=== PATIENT | male | born 1980 | race Caucasian/White ===

== ENCOUNTER 2017-07-03 19:48 | Emergency (ER) | payer OTHER ==
[~2017-07-03] VITALS: Ht 175.3 cm; Wt 68.2 kg
[~2017-07-03 19:48] MED LIST: ABIL5TAB6 PO; CLON1 PO; FLUO20SO3 PO; SOMA250T PO
[2017-07-03 20:07] VITALS: BP 163/88; PULSE 109; RESP 16; TEMP 98.3; O2SAT 99
--- NOTE | 2017-07-03 20:11 | PD ---
HPI Chief Complaint: Psychiatric Symptoms Time Seen by Provider: 20:00 Travel History International Travel<30 days: No Contact w/Intl Traveler<30days: No Traveled to known affect area: No History of Present Illness HPI 36-year-old male presents emergency Department under Johnson act by PD. The patient allegedly had jumped out of a moving vehicle. He had made suicidal statements. He is brought here for evaluation. Patient has been smoking marijuana and drinking alcohol. The patient appears heavily intoxicated. I meaningful history is unobtainable at this time. PFSH Past Medical History Anxiety: Yes Depression: Yes Cancer: No Cardiovascular Problems: No Diminished Hearing: No Headaches: No Hypertension: Yes Psychiatric: Yes (Long history of anxiety, depression and ADHD) Seizures: No Past Surgical History Oral Surgery: Yes (WISDOM TEETH) Social History Alcohol Use: Yes Tobacco Use: Yes Substance Use: Yes (ALCOHOL, MARIJUANA) Allergies-Medications (Allergen,Severity, Reaction): Coded Allergies: No Known Allergies (Verified Adverse Reaction, Unknown, 07/03/17) Reported Meds & Prescriptions Reported Meds & Active Scripts Active Active Prescriptions or Reported Medications Unobtainable Review of Systems ROS Limitations: Intoxication Physical Exam Narrative GENERAL: Well-nourished, well-developed patient. Smells of EtOH and appears heavily intoxicated. She is somewhat agitated. Very labile personality. SKIN: Warm and dry. HEAD: Normocephalic and atraumatic. EYES: No scleral icterus. No injection or drainage. ENT: No nasal drainage noted. Mucous membranes pink. Airway patent. NECK: Supple, trachea midline. Moves head freely without obvious discomfort. CARDIOVASCULAR: Regular rate and rhythm without murmurs, gallops, or rubs. RESPIRATORY: Breath sounds equal bilaterally. No accessory muscle use. GASTROINTESTINAL: Abdomen soft, non-tender, nondistended. EXTREMITIES: No cyanosis or edema. BACK: Nontender without obvious deformity. No CVA tenderness. NEURO: Patient is alert and oriented. no sensorimotor deficits. Nonfocal. Slurred speech. PSYCH: No delusions. No auditory or visual hallucinations. Data Data Last Documented VS Vital Signs Date Time Temp Pulse Resp B/P (MAP) Pulse Ox O2 Delivery O2 Flow Rate FiO2 07/03/17 23:27 98.0 71 18 108/63 (78) 99 Room Air Orders Orders Complete Blood Count With Diff (07/03/17 20:05) Comprehensive Metabolic Panel (07/03/17 20:05) Thyroid Stimulating Hormone (07/03/17 20:05) Psych Screen (07/03/17 20:05) Drug Screen, Random Urine (07/03/17 20:05) Alcohol (Ethanol) (07/03/17 20:05) Salicylates (Aspirin) (07/03/17 20:05) Tylenol (Acetaminophen) (07/03/17 20:05) Haloperidol Inj (Haldol Inj) (07/03/17 20:45) Lorazepam Inj (Ativan Inj) (07/03/17 20:45) Labs Laboratory Tests Test 07/03/17 20:10 07/03/17 20:50 White Blood Count 8.1 TH/MM3 Red Blood Count 4.94 MIL/MM3 Hemoglobin 17.0 GM/DL Hematocrit 48.5 % Mean Corpuscular Volume 98.2 FL Mean Corpuscular Hemoglobin 34.5 PG Mean Corpuscular Hemoglobin Concent 35.1 % Red Cell Distribution Width 14.1 % Platelet Count 361 TH/MM3 Mean Platelet Volume 7.5 FL Neutrophils (%) (Auto) 74.6 % Lymphocytes (%) (Auto) 19.3 % Monocytes (%) (Auto) 4.6 % Eosinophils (%) (Auto) 0.4 % Basophils (%) (Auto) 1.1 % Neutrophils # (Auto) 6.1 TH/MM3 Lymphocytes # (Auto) 1.6 TH/MM3 Monocytes # (Auto) 0.4 TH/MM3 Eosinophils # (Auto) 0.0 TH/MM3 Basophils # (Auto) 0.1 TH/MM3 CBC Comment DIFF FINAL Differential Comment Total Protein 8.6 GM/DL Alkaline Phosphatase 111 U/L Alanine Aminotransferase (ALT/SGPT) 151 U/L Total Bilirubin 0.3 MG/DL Anion Gap 12 MEQ/L Estimat Glomerular Filtration Rate 82 ML/MIN Thyroid Stimulating Hormone 3rd Gen 0.335 uIU/ML Salicylates Level 3.3 MG/DL Acetaminophen Level LESS THAN 2.0 MCG/ML Ethyl Alcohol Level 363 MG/DL Urine Opiates Screen NEG Urine Barbiturates Screen NEG Urine Amphetamines Screen NEG Urine Benzodiazepines Screen NEG Urine Cocaine Screen NEG Urine Cannabinoids Screen POS MDM Medical Decision Making Medical Screen Exam Complete: Yes Emergency Medical Condition: Yes Medical Record Reviewed: Yes Interpretation(s) Laboratory Tests Test 07/03/17 20:10 07/03/17 20:50 White Blood Count 8.1 TH/MM3 Red Blood Count 4.94 MIL/MM3 Hemoglobin 17.0 GM/DL Hematocrit 48.5 % Mean Corpuscular Volume 98.2 FL Mean Corpuscular Hemoglobin 34.5 PG Mean Corpuscular Hemoglobin Concent 35.1 % Red Cell Distribution Width 14.1 % Platelet Count 361 TH/MM3 Mean Platelet Volume 7.5 FL Neutrophils (%) (Auto) 74.6 % Lymphocytes (%) (Auto) 19.3 % Monocytes (%) (Auto) 4.6 % Eosinophils (%) (Auto) 0.4 % Basophils (%) (Auto) 1.1 % Neutrophils # (Auto) 6.1 TH/MM3 Lymphocytes # (Auto) 1.6 TH/MM3 Monocytes # (Auto) 0.4 TH/MM3 Eosinophils # (Auto) 0.0 TH/MM3 Basophils # (Auto) 0.1 TH/MM3 CBC Comment DIFF FINAL Differential Comment Total Protein 8.6 GM/DL Alkaline Phosphatase 111 U/L Alanine Aminotransferase (ALT/SGPT) 151 U/L Total Bilirubin 0.3 MG/DL Anion Gap 12 MEQ/L Estimat Glomerular Filtration Rate 82 ML/MIN Thyroid Stimulating Hormone 3rd Gen 0.335 uIU/ML Salicylates Level 3.3 MG/DL Acetaminophen Level LESS THAN 2.0 MCG/ML Ethyl Alcohol Level 363 MG/DL Urine Opiates Screen NEG Urine Barbiturates Screen NEG Urine Amphetamines Screen NEG Urine Benzodiazepines Screen NEG Urine Cocaine Screen NEG Urine Cannabinoids Screen POS Differential Diagnosis MDM: High Differential diagnoses: Schizophrenia, schizoaffective disorder, bipolar, anxiety, depression, adjustment reaction, mood disorder NOS, ODD, depressive disorder NOS, dementia, dementia with agitation, psychosis NOS, substance induced mood disorder, DMDD, Asperger syndrome, infection,electrolyte abnormality, malingering. Narrative Course Mental health screening discussed with the patient. Psychiatric screen ordered. The patient is medicated with Haldol 10 mg and Ativan 2 mg IM due to his agitation and potential for risk to the staff. The patient been medically cleared. Diagnosis Primary Impression: Medical clearance for psychiatric admission Additional Impressions: Alcohol intoxication Qualified Codes: F10.920 - Alcohol use, unspecified with intoxication, uncomplicated Substance abuse Scripts Unable to Obtain Active Prescriptions or Reported Meds Condition: Wilfrido Pollock Jul 03, 2017 20:11
[2017-07-03 20:45] LABS: AUTOMATED NEUTROPHIL # 6.1 TH/MM3 (1.8-7.7); BASOPHIL # 0.1 TH/MM3 (0-0.2); BASOPHIL % 1.1 % (0.0-2.0); EOSINOPHIL % 0.4 % (0.0-4.0); HEMATOCRIT 48.5 % (39.0-51.0); LYMPH % 19.3 % (9.0-44.0); LYMPHOCYTE # 1.6 TH/MM3 (1.0-4.8); MEAN CELL VOLUME 98.2 FL (80.0-100.0); MEAN CORPUSCULAR HEMOGLOBIN 34.5 PG (27.0-34.0); MEAN CORPUSCULAR HGB CONC 35.1 % (32.0-36.0); MEAN PLATELET VOLUME 7.5 FL (7.0-11.0); MONO % 4.6 % (0.0-8.0); MONOCYTE # 0.4 TH/MM3 (0-0.9); NEUT % 74.6 % (16.0-70.0); PLATELET COUNT 361 TH/MM3 (150-450); RED BLOOD COUNT 4.94 MIL/MM3 (4.50-5.90); RED CELL DISTRIBUTION WIDTH 14.1 % (11.6-17.2); WHITE BLOOD COUNT 8.1 TH/MM3 (4.0-11.0)
[2017-07-03] MEDS ORDERED: HALOPERIDOL LACTATE 5 MG/ML AMP IM ONE (20:45)
[2017-07-03] MEDS ORDERED: LORazepam 2 MG/ML VIAL IM ONE (20:45)
[2017-07-03 21:01] LABS: ALBUMIN 4.4 GM/DL (3.4-5.0); AST (GOT) 72 U/L (15-37); BLOOD UREA NITROGEN 13 MG/DL (7-18); CALCIUM 9.1 MG/DL (8.5-10.1); CHLORIDE 108 MEQ/L (98-107); CREATININE 1.02 MG/DL (0.60-1.30); GLOMERULAR FILTRATION RATE 82 ML/MIN (>89); GLUCOSE,RANDOM 84 MG/DL (74-106); SODIUM (NA) 142 MEQ/L (136-145)
[2017-07-03 21:11] LABS: ALKALINE PHOSPHATASE 111 U/L (45-117); ALT (GPT) 151 U/L (12-78); TOTAL BILIRUBIN ADULT 0.3 MG/DL (0.2-1.0); TOTAL PROTEIN 8.6 GM/DL (6.4-8.2)
[2017-07-03 21:12] LABS: ACETAMINOPHEN LESS THAN 2.0 MCG/ML (10.0-30.0)
[2017-07-03 23:27] VITALS: BP 108/63; PULSE 71; RESP 18; TEMP 98; O2SAT 99
[2017-07-04 06:17] VITALS: BP 119/65; PULSE 111; RESP 18; TEMP 98.2; O2SAT 99
--- NOTE | 2017-07-04 15:20 | PD.PSY.CON ---
Provisional Diagnosis Admission Date [place] I. Alcohol induced mood disorder, alcohol and cocaine use disorder, history of depression and generalized anxiety disorder [place] II. Unspecified personality disorder, cluster B traits [place]way III. No significant medical history significant medical history History of Present Illness Service Psychiatry Consult Requested By ER Reason for Consult Elizabeth act Primary Care Physician No Primary Care Physician HPI The patient is a 36-year-old [place] man, domiciled in [place] his , unemployed, with psychiatric history of depression, generalized anxiety disorder , previous psychotic hospitalizations, one of the hospitalization was here in [place] in 2014, the documentation reviewed, previous suicidal attempts, history of self cutting behavior, establish outpatient psychiatric care with Dr. Jarquin, is in Remeron 30 mg, clonazepam 1 mg 3 times a day, no significant medical history, who presents emergency Department under Elizabeth alves by PD. The patient allegedly had jumped out of a moving vehicle. He had made suicidal statements. He is brought here for evaluation. Patient has been smoking marijuana and drinking alcohol. The patient appears heavily intoxicated. I meaningful history is unobtainable at this time. On initial presentation his BAL was 363. On psychiatric evaluation today, the patient is clinically sober, calm, cooperative, logical, coherent and relevant. The patient does not remember the circumstances that brought him to the hospital. He drunk yesterday. The patient denies trying to commit suicide, towards good mood, denies depressive symptoms, he denies anxiety, he denies suicidal and homicidal ideation, he denies visual and auditory hallucinations. She reports drinking alcohol about 3 times per week, he denies withdrawal symptoms, reports daily use of marijuana. Review of Systems Constitutional: DENIES: Diaphoretic episodes, Fatigue, Fever, Weight gain, Weight loss, Chills, Dizziness, Change in appetite, Night Sweats Endocrine: DENIES: Heat/cold intolerance, Polydipsia, Polyuria, Polyphagia Eyes: DENIES: Blurred vision, Diplopia, Eye inflammation, Eye pain, Vision loss , Photosensitivity, Double Vision Ears, nose, mouth, throat: DENIES: Tinnitus, Hearing loss, Vertigo, Nasal discharge, Oral lesions, Throat pain, Hoarseness, Ear Pain, Running Nose, Epistaxis, Sinus Pain, Toothache, Odynophagia Respiratory: DENIES: Apneas, Cough, Snoring, Wheezing, Hemoptysis, Sputum production, Shortness of breath Cardiovascular: DENIES: Chest pain, Palpitations, Syncope, Dyspnea on Exertion , PND, Lower Extremity Edema, Orthopnea, Claudication Gastrointestinal: DENIES: Abdominal pain, Black stools, Bloody stools, Constipation, Diarrhea, Nausea, Vomiting, Difficulty Swallowing, Anorexia Genitourinary: DENIES: Sexual dysfunction, Urinary frequency, Urinary incontinence, Urgency, Hematuria, Dysuria, Nocturia, Penile Discharge, Testicular Pain, Testicular Swelling Musculoskeletal: DENIES: Joint pain, Muscle aches, Stiffness, Joint Swelling, Back pain, Neck pain Integumentary: DENIES: Abnormal pigmentation, Nail changes, Pruritus, Rash Hematologic/lymphatic: DENIES: Bruising, Lymphadenopathy Immunologic/allergic: DENIES: Eczema, Urticaria Neurologic: DENIES: Abnormal gait, Headache, Localized weakness, Paresthesias, Seizures, Speech Problems, Tremor, Poor Balance Psychiatric: DENIES: Anxiety, Confusion, Mood changes, Depression, Hallucinations, Agitation, Suicidal Ideation, Homicidal Ideation, Delusions Past Family Social History Coded Allergies: No Known Allergies (Verified Adverse Reaction, Unknown, 07/03/17) Discontinued Reported Medications Carisoprodol (Soma) 250 Mg Tab, 250 MG PO BID, TAB 11/25/14 Clonazepam (Klonopin) 1 Mg Tab, 1 MG PO TID, #90 TAB 11/25/14 Fluoxetine Hcl (Prozac) 20 Mg/5 Ml Liqd, 40 MG PO DAILY, ML 11/25/14 Discontinued Scripts Aripiprazole (Abilify 5 mg) 5 Mg Tab, 5 MG PO HS for mental health, #14 TAB 0 Refills Prov:Jose Berry MD 12/29/14 Family Psych History She has a cousin with schizophrenia Social History Patient was born and raised in [place], he lives in [place] his , unemployed, his highest level of education is high school Patient's Strengths (min. 2) outpatient psychiatric care Physical Exam Vital Signs Vital Signs Date Time Temp Pulse Resp B/P (MAP) Pulse Ox O2 Delivery O2 Flow Rate FiO2 07/04/17 06:17 98.2 111 18 119/65 (83) 99 Room Air Lab Results Test 07/03/17 20:10 07/03/17 20:50 White Blood Count 8.1 TH/MM3 Red Blood Count 4.94 MIL/MM3 Hemoglobin 17.0 GM/DL Hematocrit 48.5 % Mean Corpuscular Volume 98.2 FL Mean Corpuscular Hemoglobin 34.5 PG Mean Corpuscular Hemoglobin Concent 35.1 % Red Cell Distribution Width 14.1 % Platelet Count 361 TH/MM3 Mean Platelet Volume 7.5 FL Neutrophils (%) (Auto) 74.6 % Lymphocytes (%) (Auto) 19.3 % Monocytes (%) (Auto) 4.6 % Eosinophils (%) (Auto) 0.4 % Basophils (%) (Auto) 1.1 % Neutrophils # (Auto) 6.1 TH/MM3 Lymphocytes # (Auto) 1.6 TH/MM3 Monocytes # (Auto) 0.4 TH/MM3 Eosinophils # (Auto) 0.0 TH/MM3 Basophils # (Auto) 0.1 TH/MM3 CBC Comment DIFF FINAL Differential Comment Total Protein 8.6 GM/DL Alkaline Phosphatase 111 U/L Alanine Aminotransferase (ALT/SGPT) 151 U/L Total Bilirubin 0.3 MG/DL Anion Gap 12 MEQ/L Estimat Glomerular Filtration Rate 82 ML/MIN Thyroid Stimulating Hormone 3rd Gen 0.335 uIU/ML Salicylates Level 3.3 MG/DL Acetaminophen Level LESS THAN 2.0 MCG/ML Ethyl Alcohol Level 363 MG/DL Urine Opiates Screen NEG Urine Barbiturates Screen NEG Urine Amphetamines Screen NEG Urine Benzodiazepines Screen NEG Urine Cocaine Screen NEG Urine Cannabinoids Screen POS Mental Status Examination Appearance: Appropriate Consciousness: Alert Orientation: x4 Motor Activity: Normal gait Speech: Unremarkable Language: Adequate Fund of Knowledge: Adequate Attention and Concentration: Adequate Memory: Unremarkable Mood: Appropriate Affect: Appropriate Thought Process & Associations: Intact Thought Content: Appropriate Hallucination Type: None Delusion Type: None Suicidal Ideation: No Suicidal Plan: No Suicidal Intention: No Homicidal Ideation: No Homicidal Plan: No Homicidal Intention: No Insight: Adequate Judgment: Adequate Assessment & Plan Problem List: (1) Alcohol intoxication ICD Codes: F10.929 - Alcohol use, unspecified with intoxication, unspecified Status: Acute Assessment & Plan: Recent suicidal gesture of jumping off his car seems to be the result of acute alcohol intoxication. At this moment the patient denies depression, denies anxiety, denies chaparrita and psychosis. He denies suicidal and homicidal ideation, he denies visual and auditory hallucinations. The patient is connected with outpatient psychiatric care, he is in Remeron 30 mg, clonazepam 1 mg 3 times a day. He does not meet criteria for involuntary psychiatric admission at this moment. Support, motivation and psychoeducation provided. Patient can continue his psychiatric care as an outpatient. His mother was contacted for collateral information, she confirms that the patient has history of psychiatry, problem with alcohol. Johnson act will be lifted. Assessment & Plan Estimated LOS: days Problem Qualifiers (1) Alcohol intoxication: Qualified Codes: F10.920 - Alcohol use, unspecified with intoxication, uncomplicated Yeison Akers MD Jul 04, 2017 15:20
--- NOTE | 2017-07-04 16:16 | PD ---
Physical Exam Time Seen by Provider: 16:[address] Amador has evaluated the patient, lifted the Johnson act and cleared the patient for discharge. Data Data Last Documented VS Vital Signs Date Time Temp Pulse Resp B/P (MAP) Pulse Ox O2 Delivery O2 Flow Rate FiO2 07/04/17 06:17 98.2 111 18 119/65 (83) 99 Room Air Orders Orders Complete Blood Count With Diff (07/03/17 20:05) Comprehensive Metabolic Panel (07/03/17 20:05) Thyroid Stimulating Hormone (07/03/17 20:05) Psych Screen (07/03/17 20:05) Drug Screen, Random Urine (07/03/17 20:05) Alcohol (Ethanol) (07/03/17 20:05) Salicylates (Aspirin) (07/03/17 20:05) Tylenol (Acetaminophen) (07/03/17 20:05) Haloperidol Inj (Haldol Inj) (07/03/17 20:45) Lorazepam Inj (Ativan Inj) (07/03/17 20:45) Diet Regular Basic (07/04/17 Breakfast) Diet Regular Basic (07/04/17 Lunch) Diet Regular Basic (07/04/17 Dinner) Labs Laboratory Tests Test 07/03/17 20:10 07/03/17 20:50 White Blood Count 8.1 TH/MM3 Red Blood Count 4.94 MIL/MM3 Hemoglobin 17.0 GM/DL Hematocrit 48.5 % Mean Corpuscular Volume 98.2 FL Mean Corpuscular Hemoglobin 34.5 PG Mean Corpuscular Hemoglobin Concent 35.1 % Red Cell Distribution Width 14.1 % Platelet Count 361 TH/MM3 Mean Platelet Volume 7.5 FL Neutrophils (%) (Auto) 74.6 % Lymphocytes (%) (Auto) 19.3 % Monocytes (%) (Auto) 4.6 % Eosinophils (%) (Auto) 0.4 % Basophils (%) (Auto) 1.1 % Neutrophils # (Auto) 6.1 TH/MM3 Lymphocytes # (Auto) 1.6 TH/MM3 Monocytes # (Auto) 0.4 TH/MM3 Eosinophils # (Auto) 0.0 TH/MM3 Basophils # (Auto) 0.1 TH/MM3 CBC Comment DIFF FINAL Differential Comment Total Protein 8.6 GM/DL Alkaline Phosphatase 111 U/L Alanine Aminotransferase (ALT/SGPT) 151 U/L Total Bilirubin 0.3 MG/DL Anion Gap 12 MEQ/L Estimat Glomerular Filtration Rate 82 ML/MIN Thyroid Stimulating Hormone 3rd Gen 0.335 uIU/ML Salicylates Level 3.3 MG/DL Acetaminophen Level LESS THAN 2.0 MCG/ML Ethyl Alcohol Level 363 MG/DL Urine Opiates Screen NEG Urine Barbiturates Screen NEG Urine Amphetamines Screen NEG Urine Benzodiazepines Screen NEG Urine Cocaine Screen NEG Urine Cannabinoids Screen POS MDM Supervised Visit with SHASHI: No Narrative Course Dr. Amador has evaluated the patient, lifted the Johnson act and cleared the patient for discharge. Patient contracts safety. Denies suicidal or homicidal ideations. Patient will be provided community resource packet to [facility] for follow-up. Has friends and family for support. Patient was medically cleared by alternate provider prior to psych screening. Patient has been evaluated by psychiatry and and is now cleared for discharge. 1622: CMP on the MR is pending. I called the lab and was given the results which are unremarkable. Diagnosis Primary Impression: Alcohol intoxication Qualified Codes: F10.920 - Alcohol use, unspecified with intoxication, uncomplicated Additional Impressions: Substance abuse Low TSH level Referrals: [facility] (Out patient) [facility] Primary Care Physician Psychiatrist [facility] Patient Instructions: Abuse of Alcohol (ED), Alcohol Dependence (ED), Alcohol Intoxication (ED), General Instructions, Polysubstance Abuse (ED) Additional Instruction: Contract safety to your self and others Follow-up with psychiatry Follow-up with primary care provider Follow-up with [facility] Follow-up with primary care provider in regards to low TSH level Return to the emergency department immediately with worsening of symptoms Med/Other Pt SpecificInfo: No Change to Meds, No Meds Exist/No RX given Scripts Unable to Obtain Active Prescriptions or Reported Meds Disposition: 01 DISCHARGE HOME Condition: Stable Sarah Ledezma Jul 04, 2017 16:16
[2017-07-04 16:33] VITALS: BP 114/64
== END 2017-07-04 16:42 | disposition home or self-care (01) ==
LOC: NEPD 19:48 → NEPJ 07-04 16:42
DX: F10.129 Alcohol abuse with intoxication, unspecified (principal); F19.10 Other psychoactive substance abuse, uncomplicated; F12.10 Cannabis abuse, uncomplicated; R45.851 Suicidal ideations; I10 Essential (primary) hypertension; F41.9 Anxiety disorder, unspecified; F32.9 Major depressive disorder, single episode, unspecified; F90.9 Attention-deficit hyperactivity disorder, unspecified type; Z72.0 Tobacco use
CPT/HCPCS: 80053; 80307; 84443; 85025; 96372; 99284; J1630; J2060

== ENCOUNTER 2018-05-22 21:10 | Inpatient (IN) ==
[2018-05-22] MEDS ORDERED: Lidocaine 1%/Epinephrine 1:100,000 Inj 50 ML Vial INFILTRATN ONE (21:59)
[2018-05-22] MEDS ORDERED: Lidocaine 1% Inj 50 ML Vial ONE (22:03)
--- NOTE | 2018-05-22 22:21 | ED ---
HPI General Chief Complaint: Psychiatric Symptoms Stated Complaint: Psych Sofia Hernandez Time Seen by Provider: 05/23/18 10:30 Source: patient and EMS Mode of arrival: EMS Limitations: no limitations History of Present Illness HPI Narrative: 37-year-old male was Johnson acted and brought in by EMS for psychiatric evaluation. Patient cut himself on the right wrist with a knife this evening. Patient states that he attempted suicide. Patient has history of suicide attempts in the past. Patient has history of depression, anxiety disorder, previous psychotic hospitalization. Patient denies medical problems. Patient states that he is up-to-date with TD booster. Patient states that he drinks alcohol occasionally. Patient denies recent illicit drug abuse. MD complaint: Reports suicidal ideation Onset (ago): hour(s) Duration: constant History of same: Yes Relieving factors: none Exacerbating factors: none Associated psychiatric symptoms: Reports depression Associated symptoms: Reports denies other symptoms Treatments prior to arrival: Reports none If self harm: admits thoughts of self harm Related Data Home Medications Medication Instructions Recorded Confirmed carisoprodol [Soma] 350 mg PO HS 05/23/18 05/23/18 clonazepam 3 mg PO HS 05/23/18 05/23/18 dextroamphetamine-amphetamine 30 mg PO BID 05/23/18 05/23/18 [Adderall] mirtazapine 45 mg PO HS 05/23/18 05/23/18 Allergies Allergy/AdvReac Type Severity Reaction Status Date / Time No Known Allergies Unknown Uncoded 07/03/17 20:10 Review of Systems ROS: all other systems reviewed are negative PMFSH Medical History Medical History Patient denies medical problems (Acute) Surgical History Surgical History No history of previous surgery (Acute) Social History Social History Substance History: Active Abuse Second Hand Smoke Exposure: Yes Smoking Status: Current every day smoker Tobacco Type: Cigarettes How Often Do You Have a Drink Containing Alcohol: Monthly or less Recent Travel in [place] within the Last 8 Weeks: No Recent Out of Country Travel within the Last 8 Weeks: No Immunization History Tetanus Immunization: <5 Years Exam Narrative Exam Narrative: GENERAL: Well-nourished, well-developed patient. SKIN: Focused skin assessment warm/dry. HEAD: Normocephalic. EYES: No scleral icterus. No injection or drainage. NECK: Supple, trachea midline. No JVD or lymphadenopathy. CARDIOVASCULAR: Regular rate and rhythm without murmurs, gallops, or rubs. RESPIRATORY: Breath sounds equal bilaterally. No accessory muscle use. GASTROINTESTINAL: Abdomen soft, non-tender, nondistended. MUSCULOSKELETAL: No cyanosis, or edema. BACK: Nontender without obvious deformity. No CVA tenderness. Patient has a 6 cm transverse laceration across the right wrist. Patient has 1 active arterial bleeding source noted. Sensory motor function distally intact. No obvious tendon ligament joint involvement. Course Initial Documented Vital Signs Temperature 98.2 F 05/22/18 21:50 Pulse Rate 86 05/22/18 21:50 Respiratory Rate 16 05/22/18 21:50 Blood Pressure 146/87 H 05/22/18 21:50 Pulse Oximetry 97 05/22/18 21:50 Last Documented Vital Signs Temperature 99.1 F 05/23/18 20:16 Pulse Rate 62 05/23/18 20:16 Respiratory Rate 17 05/23/18 20:16 Blood Pressure 144/76 H 05/23/18 20:16 Pulse Oximetry 95 05/23/18 20:16 Medical Decision Making MDM Narrative Medical decision making narrative: 37-year-old male with self-inflicted laceration right wrist. Patient states that he attempted suicide. History of suicide attempts in the past by cutting himself. Laceration to the right wrist was repaired . Patient is medically cleared for psychiatric evaluation. Potassium initially was elevated. Repeat potassium was normal. Patient is medically cleared for psychiatric evaluation. Medical Screen Exam Complete: Yes Emergency Medical Condition: Yes Differential Diagnosis Differential Diagnosis: Differential diagnosis including depression, suicidal, adjustment disorder. Lab Data Lab results reviewed: Yes I reviewed the patient's lab results. Result diagrams: 05/22/18 22:10 05/22/18 23:50 Lab Results 05/22/18 05/22/18 05/22/18 Range/Units 22:10 22:10 23:05 WBC 7.2 (4.0-11.0) th/mm3 RBC 5.03 (4.50-5.90) mil/mm3 Hgb 17.6 H (13.0-17.0) gm/dL Hct 49.0 (39.0-51.0) % MCV 97.4 (80.0-100.0) fL MCH 35.0 H (27.0-34.0) pg MCHC 35.9 (32.0-36.0) % RDW 13.4 (11.6-17.2) % Plt Count 318 (150-450) th/mm3 MPV 7.6 (7.0-11.0) fL Neut % (Auto) 56.4 (16.0-70.0) % Lymph % (Auto) 34.4 (9.0-44.0) % [place] % (Auto) 6.9 (0.0-8.0) % Eos % (Auto) 1.1 (0.0-4.0) % Baso % (Auto) 1.2 (0.0-2.0) % Neut # (Auto) 4.1 (1.8-7.7) th/mm3 Lymph # (Auto) 2.5 (1.0-4.8) th/mm3 [place] # (Auto) 0.5 (0.0-0.9) th/mm3 Eos # (Auto) 0.1 (0.0-0.4) th/mm3 Baso # (Auto) 0.1 (0.0-0.2) th/mm3 WBC Differential . Differential Comment Auto diff final Sodium 143 (136-145) meq/L Potassium 6.4 H (3.5-5.1) meq/L Chloride 111 H (98-107) meq/L Carbon Dioxide 23.9 (21.0-32.0) meq/L Anion Gap 8 (5-15) meq/L BUN 11 (7-18) mg/dL Creatinine 1.11 (0.60-1.30) mg/dL Estimated GFR 74 L (>89) mL/min Random Glucose 94 (74-106) mg/dL Calcium 8.5 (8.5-10.1) mg/dL Total Bilirubin 0.3 (0.2-1.0) mg/dL AST 114 H (15-37) U/L ALT 179 H (12-78) U/L Alkaline Phosphatase 74 (45-117) U/L Total Protein 8.3 H (6.4-8.2) g/dL Albumin 3.8 (3.4-5.0) g/dL TSH 2.580 (0.358-3.740) uIU/mL Urine Opiates Screen Neg (Neg) Ur Barbiturates Screen Neg (Neg) Ur Amphetamines Screen Pos H (Neg) U Benzodiazepines Scrn Neg (Neg) Urine Cocaine Screen Neg (Neg) U Cannabinoids Screen Pos H (Neg) Serum Alcohol 188 H (0-5) mg/dL 05/22/18 Range/Units 23:50 WBC (4.0-11.0) th/mm3 RBC (4.50-5.90) mil/mm3 Hgb (13.0-17.0) gm/dL Hct (39.0-51.0) % MCV (80.0-100.0) fL MCH (27.0-34.0) pg MCHC (32.0-36.0) % RDW (11.6-17.2) % Plt Count (150-450) th/mm3 MPV (7.0-11.0) fL Neut % (Auto) (16.0-70.0) % Lymph % (Auto) (9.0-44.0) % [place] % (Auto) (0.0-8.0) % Eos % (Auto) (0.0-4.0) % Baso % (Auto) (0.0-2.0) % Neut # (Auto) (1.8-7.7) th/mm3 Lymph # (Auto) (1.0-4.8) th/mm3 Jewell # (Auto) (0.0-0.9) th/mm3 Eos # (Auto) (0.0-0.4) th/mm3 Baso # (Auto) (0.0-0.2) th/mm3 WBC Differential Differential Comment Sodium (136-145) meq/L Potassium 4.1 D (3.5-5.1) meq/L Chloride (98-107) meq/L Carbon Dioxide (21.0-32.0) meq/L Anion Gap (5-15) meq/L BUN (7-18) mg/dL Creatinine (0.60-1.30) mg/dL Estimated GFR (>89) mL/min Random Glucose (74-106) mg/dL Calcium (8.5-10.1) mg/dL Total Bilirubin (0.2-1.0) mg/dL AST (15-37) U/L ALT (12-78) U/L Alkaline Phosphatase (45-117) U/L Total Protein (6.4-8.2) g/dL Albumin (3.4-5.0) g/dL TSH (0.358-3.740) uIU/mL Urine Opiates Screen (Neg) Ur Barbiturates Screen (Neg) Ur Amphetamines Screen (Neg) U Benzodiazepines Scrn (Neg) Urine Cocaine Screen (Neg) U Cannabinoids Screen (Neg) Serum Alcohol (0-5) mg/dL Discharge Plan Discharge Disposition Patient Disposition: Sign Out(ED Internal Use Only) Discharge Condition Condition: Stable Discharge Order Discharge Orders: ED Use Only Admit Order (Routine); Ordered 05/23/18 Ordered By: Antonio Cervantes Discharge Details Diagnosis: Suicidal behavior Physicians Team ED Provider: Chai Mercer Primary Care Provider: Primary Care Shellie Zapata Attending Provider: Ben Olvera Status ED Status: Left Department Discharge Information Discharge Date/Time: 05/23/18 18:30
[2018-05-22 22:23] LABS: Baso # (Auto) 0.1 th/mm3 (0.0-0.2); Baso % (Auto) 1.2 % (0.0-2.0); Eos # (Auto) 0.1 th/mm3 (0.0-0.4); Eos % (Auto) 1.1 % (0.0-4.0); Hemoglobin 17.6 gm/dL (13.0-17.0); Lymph # (Auto) 2.5 th/mm3 (1.0-4.8); Lymph % (Auto) 34.4 % (9.0-44.0); Mean Corpuscular HGB Conc 35.9 % (32.0-36.0); Mean Corpuscular Volume 97.4 fL (80.0-100.0); Mean Platelet Volume 7.6 fL (7.0-11.0); Mono # (Auto) 0.5 th/mm3 (0.0-0.9); Mono % (Auto) 6.9 % (0.0-8.0); Neut # (Auto) 4.1 th/mm3 (1.8-7.7); Neut % (Auto) 56.4 % (16.0-70.0); Platelet Count 318 th/mm3 (150-450); Red Blood Count 5.03 mil/mm3 (4.50-5.90); Red Cell Distribution Width 13.4 % (11.6-17.2); White Blood Count 7.2 th/mm3 (4.0-11.0)
--- NOTE | 2018-05-22 22:43 | ED ---
Procedures Laceration Laceration 1: Site: upper extremity (wrist ) Side (If applicable): right Size (cm): 6 Description: flap Anesthetic used: lidocaine 1% Anesthesia technique:: local infiltration Amount (mL): 10 Pre-repair:: wound explored, irrigated extensively, deep structures intact and extensive debridement Skin layer closed with: prolene Size (cm): 4-0 Number of sutures:: 8 Technique:: simple, interrupted and running Subcutaneous layer closed with: chromic gut Size: 3-0 Number of sutures: 4 Technique:: vertical mattress
[2018-05-22 22:56] LABS: Alanine Aminotransferase 179 U/L (12-78); Albumin 3.8 g/dL (3.4-5.0); Alcohol 188 mg/dL (0-5); Anion Gap 8 meq/L (5-15); Aspartate Aminotransferase 114 U/L (15-37); Blood Urea Nitrogen 11 mg/dL (7-18); Calcium 8.5 mg/dL (8.5-10.1); Carbon Dioxide 23.9 meq/L (21.0-32.0); Chloride 111 meq/L (98-107); Glomerular Filtration Rate 74 mL/min (>89); Glucose,Random 94 mg/dL (74-106); Potassium 6.4 meq/L (3.5-5.1); Sodium 143 meq/L (136-145)
[2018-05-22 23:01] LABS: Alkaline Phosphatase 74 U/L (45-117); Total Protein 8.3 g/dL (6.4-8.2)
[2018-05-22 23:30] LABS: Amphetamine Screen,Urine Pos (Neg); Barbiturate Screen,Urine Neg (Neg); Cannabinoid Screen,Urine Pos (Neg); Cocaine Screen,Urine Neg (Neg)
[2018-05-22 23:31] LABS: Opiate Screen,Urine Neg (Neg)
[2018-05-23] MEDS ORDERED: Acetaminophen 325 MG Tablet PO ONE (00:40)
--- NOTE | 2018-05-23 13:23 | ED ---
HPI - Psych - General Source: patient, EMS Mode of arrival: EMS Limitations: no limitations - History of Present Illness MD complaint: suicidal ideation Onset (ago): hour(s) Duration: constant History of same: No Relieving factors: none Exacerbating factors: none Associated psychiatric symptoms: depression Associated symptoms: denies other symptoms Treatments prior to arrival: none - General Chief Complaint: Psychiatric Symptoms Stated Complaint: Psych Sofia Hernandez Time Seen by Provider: 05/23/18 10:30 - History of Present Illness HPI Narrative: Patient is a 37 years old male brought to the emergency room by the [place] [employer] department on a Johnson act. According to the officers report he was called by the patient's mother after patient's inflicted a deep laceration to his left wrist. The officer stated that the large knife was found at the house and there was blood all over the house. Patient's mother gave a history patient has a history of severe depression and often self mutilated that he was in the hospital about a year ago on life support after overdosing on medications. The patient's present relaxed and composed and he tries to minimizing his plight. Patient stated that he was last hospitalized 2 years ago but mother was able to present a different time line. Mother reported that patient often locks himself in his room but 3-4 days at a time and communication is minimally with others. At this interview patient appears relaxed and his speech is fluent and appropriate. No signs of any psychomotor agitation or no drug withdrawal symptoms were seen. Patient reported that he is feeling well physically but that he is mad with himself for making such a stupid mistake. patient's denies any history or any recent use of street drugs but the serum toxicology report revealed positive amphetamine, alcohol and cannabis. There is no evidence of any auditory or visual hallucinations. Patient reported that he sees Dr. Boone and his outpatient psychiatric clinic and was last seen 2 months ago. Reported that he is maintained on Remeron medication that he takes at night but that his compliance is poor. (Antonio Cervantes) - Related Data Home Medications Medication Instructions Recorded Confirmed carisoprodol [Soma] 350 mg PO HS 05/23/18 05/23/18 clonazepam 3 mg PO HS 05/23/18 05/23/18 dextroamphetamine-amphetamine 30 mg PO BID 05/23/18 05/23/18 [Adderall] mirtazapine 45 mg PO HS 05/23/18 05/23/18 Allergies Allergy/AdvReac Type Severity Reaction Status Date / Time No Known Allergies Unknown Uncoded 07/03/17 20:10 PMF - History History Provided By: Patient - Medical History Medical History: Medical History (Last Reviewed 05/22/18 @ 22:25 by Chai Mercer MD) Patient denies medical problems - Surgical History Surgical History: Surgical History (Last Reviewed 05/22/18 @ 22:25 by Chai Mercer MD) No history of previous surgery - Tobacco History Second Hand Smoke Exposure: Yes Tobacco Use In Past 30 Days: Yes Smoking Status: Current every day smoker Tobacco Type: Cigarettes - Alcohol History How Often Do You Have a Drink Containing Alcohol: Monthly or less - Substance Use History Substance History: Active Abuse - Substance Use Type Amphetamines Status: Active Marijuana Status: Active Route Used: Inhalation Reason for Use: Get High - Travel History Recent Travel in the [facility] Within the Last 8 Weeks: No Recent Travel Out of the Country Within the Last 8 Weeks: No - Immunization History Tetanus Immunization: <5 Years Psychiatric History - Psychiatric History Psychiatric Treatment History: History of Psychiatric Treatment History of Inpatient Treatment: Yes (last admission was 6 months ago.) Firearms in Home: No - Legal History Patient denies being on probation or having any legal problems. (Antonio Cervantes) - Family Psychiatric History Denies any family history of mental illness or substance abuse disorders. ( Antonio Cervantes) Physical Exam - General Limitations: no limitations Mental Status Examination Appearance: Appropriate Consciousness: Alert Orientation: x4 Motor Activity: Normal gait Speech: Unremarkable Language: Adequate Fund of Knowledge: Adequate Attention and Concentration: Adequate Memory: Unremarkable Mood: Appropriate Affect: Euthymic Thought Process & Associations: Intact, Logical, Goal directed Thought Content: Appropriate Hallucination Type: None Delusion Type: None Suicidal Ideation: No Suicidal Plan: No Suicidal Intention: No Homicidal Ideation: No Homicidal Plan: No Homicidal Intention: No Insight: Adequate Judgment: Impulsive Initial Documented Vital Signs Temperature 98.2 F 05/22/18 21:50 Pulse Rate 86 05/22/18 21:50 Respiratory Rate 16 05/22/18 21:50 Blood Pressure 146/87 H 05/22/18 21:50 Pulse Oximetry 97 05/22/18 21:50 Last Documented Vital Signs Temperature 98.5 F 05/23/18 16:18 Pulse Rate 72 05/23/18 16:18 Respiratory Rate 20 05/23/18 16:18 Blood Pressure 137/80 05/23/18 16:18 Pulse Oximetry 96 05/23/18 16:18 MDM - Psych - Diagnosis (1) Suicidal behavior Code(s): R46.89 - Other symptoms and signs involving appearance and behavior Status: Acute (2) Alcohol abuse Code(s): F10.10 - Alcohol abuse, uncomplicated Status: Acute (3) Cannabis abuse Code(s): F12.10 - Cannabis abuse, uncomplicated Status: Acute (4) Major depress dis, severe Code(s): F32.2 - Major depressive disorder, single episode, severe without psychotic features Status: Acute - Lab Data Result diagrams: 05/22/18 22:10 05/22/18 23:50 - [facility] Narrative Medical decision making narrative: Patient was Johnson Acted by [employer] after his mother called to report that patient tried to kill himself by cutting his left wrist. Patient reported history of major depression and self injurious attempts but under reported the frequency and severity of his suicidal attempts. Patient's mother was contacted by phone and she gave a history of severe depression and frequent attempts to kill himself. Mother reported that patient last tried to harm him by overdosing on pills and inflicting lacerations to his body. Patient's mother also stated that patient was placed on life support 3 years ago after overdose on medications. His mother gave a detailed report of the severity of patient's depression, she explained that patient would often isolate himself in his room for an average of 3-4 days before emerging still looking depressed. According to mother patient often goes for many days without sleep. Mother explain that she was quite terrified of his most recent attempts with blood spilling everywhere in the house. Mother also explained that patient has poor insight and his impulse control is poor. Patients gets angry easily but the anger is internalize and not towards other people. Mother reported that patient was hospitalized about 6 months ago for similar problems and did very well when he was reestablish on this antidepressant medications. Patient is presently being treated by Psychiatrist Dr. Bateman who last seen him in his office about 6 months ago. Patient's mother thinks that a short hospitalization would be very beneficial to stabilize patient. Presently, patient is relaxed and not showing agitated or self harm behavior. The plan is to continue the Johnson act and patient's will be admitted to the 2600 unit. (Antonio Cervantes) - Lab Data Lab Results 05/22/18 05/22/18 05/22/18 Range/Units 22:10 22:10 23:05 WBC 7.2 (4.0-11.0) th/mm3 RBC 5.03 (4.50-5.90) mil/mm3 Hgb 17.6 H (13.0-17.0) gm/dL Hct 49.0 (39.0-51.0) % MCV 97.4 (80.0-100.0) fL MCH 35.0 H (27.0-34.0) pg MCHC 35.9 (32.0-36.0) % RDW 13.4 (11.6-17.2) % Plt Count 318 (150-450) th/mm3 MPV 7.6 (7.0-11.0) fL Neut % (Auto) 56.4 (16.0-70.0) % Lymph % (Auto) 34.4 (9.0-44.0) % [place] % (Auto) 6.9 (0.0-8.0) % Eos % (Auto) 1.1 (0.0-4.0) % Baso % (Auto) 1.2 (0.0-2.0) % Neut # (Auto) 4.1 (1.8-7.7) th/mm3 Lymph # (Auto) 2.5 (1.0-4.8) th/mm3 [place] # (Auto) 0.5 (0.0-0.9) th/mm3 Eos # (Auto) 0.1 (0.0-0.4) th/mm3 Baso # (Auto) 0.1 (0.0-0.2) th/mm3 WBC Differential . Differential Comment Auto diff final Sodium 143 (136-145) meq/L Potassium 6.4 H (3.5-5.1) meq/L Chloride 111 H (98-107) meq/L Carbon Dioxide 23.9 (21.0-32.0) meq/L Anion Gap 8 (5-15) meq/L BUN 11 (7-18) mg/dL Creatinine 1.11 (0.60-1.30) mg/dL Estimated GFR 74 L (>89) mL/min Random Glucose 94 (74-106) mg/dL Calcium 8.5 (8.5-10.1) mg/dL Total Bilirubin 0.3 (0.2-1.0) mg/dL AST 114 H (15-37) U/L ALT 179 H (12-78) U/L Alkaline Phosphatase 74 (45-117) U/L Total Protein 8.3 H (6.4-8.2) g/dL Albumin 3.8 (3.4-5.0) g/dL TSH 2.580 (0.358-3.740) uIU/mL Urine Opiates Screen Neg (Neg) Ur Barbiturates Screen Neg (Neg) Ur Amphetamines Screen Pos H (Neg) U Benzodiazepines Scrn Neg (Neg) Urine Cocaine Screen Neg (Neg) U Cannabinoids Screen Pos H (Neg) Serum Alcohol 188 H (0-5) mg/dL 05/22/18 Range/Units 23:50 WBC (4.0-11.0) th/mm3 RBC (4.50-5.90) mil/mm3 Hgb (13.0-17.0) gm/dL Hct (39.0-51.0) % MCV (80.0-100.0) fL MCH (27.0-34.0) pg MCHC (32.0-36.0) % RDW (11.6-17.2) % Plt Count (150-450) th/mm3 MPV (7.0-11.0) fL Neut % (Auto) (16.0-70.0) % Lymph % (Auto) (9.0-44.0) % [place] % (Auto) (0.0-8.0) % Eos % (Auto) (0.0-4.0) % Baso % (Auto) (0.0-2.0) % Neut # (Auto) (1.8-7.7) th/mm3 Lymph # (Auto) (1.0-4.8) th/mm3 [place] # (Auto) (0.0-0.9) th/mm3 Eos # (Auto) (0.0-0.4) th/mm3 Baso # (Auto) (0.0-0.2) th/mm3 WBC Differential Differential Comment Sodium (136-145) meq/L Potassium 4.1 D (3.5-5.1) meq/L Chloride (98-107) meq/L Carbon Dioxide (21.0-32.0) meq/L Anion Gap (5-15) meq/L BUN (7-18) mg/dL Creatinine (0.60-1.30) mg/dL Estimated GFR (>89) mL/min Random Glucose (74-106) mg/dL Calcium (8.5-10.1) mg/dL Total Bilirubin (0.2-1.0) mg/dL AST (15-37) U/L ALT (12-78) U/L Alkaline Phosphatase (45-117) U/L Total Protein (6.4-8.2) g/dL Albumin (3.4-5.0) g/dL TSH (0.358-3.740) uIU/mL Urine Opiates Screen (Neg) Ur Barbiturates Screen (Neg) Ur Amphetamines Screen (Neg) U Benzodiazepines Scrn (Neg) Urine Cocaine Screen (Neg) U Cannabinoids Screen (Neg) Serum Alcohol (0-5) mg/dL
--- NOTE | 2018-05-23 13:34 | ECG ---
Date Performed: 05/22/2018 Time Performed: 23:45:06 PTAGE: 37 years EKG: Sinus rhythm LEFT ATRIAL ENLARGEMENT MODERATE INTRAVENTRICULAR CONDUCTION DELAY ABNORMAL ECG NO PREVIOUS TRACING DOCTOR: Giorgi Roach Interpretating Date/Time 05/23/2018 13:28:05
[2018-05-23] MEDS ORDERED: traZODone 50 MG Tablet PO PRN (14:22)
[2018-05-23] MEDS ORDERED: Haloperidol Inj 5 MG/ML Ampul IM PRN (14:22)
[2018-05-23] MEDS ORDERED: LORazepam 1 MG Tablet PO PRN (14:22)
[2018-05-23] MEDS ORDERED: Aluminum/Magnesium/Simethacone Susp 30 ML UDC PO PRN (14:22)
[2018-05-23] MEDS ORDERED: LORazepam 0.5 MG Tablet PO PRN (14:22)
[2018-05-23] MEDS ORDERED: Ibuprofen 400 MG Tablet PO PRN (18:08)
[2018-05-23 20:17] VITALS: RESP 17
[2018-05-23] MEDS: Senna/Docusate Sodium 8.6/50 MG Tablet PO SCH (20:36)
[2018-05-24 05:45] VITALS: BP 119/66; PULSE 51; TEMP 98.3; O2SAT 96
[2018-05-24 08:50] LABS: Calcium 8.7 mg/dL (8.5-10.1); Carbon Dioxide 27.4 meq/L (21.0-32.0); Potassium 4.2 meq/L (3.5-5.1)
[2018-05-24 08:53] LABS: Chol/HDL Ratio 2.99 Ratio; HDL Cholesterol 57.7 mg/dL (40.0-60.0)
[2018-05-24] MEDS: Senna/Docusate Sodium 8.6/50 MG Tablet PO SCH (09:02)
[2018-05-24 13:09] LABS: Hemoglobin A1c 4.9 % (4.3-6.0)
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
[2018-05-24] MEDS ORDERED: Mirtazapine 15 MG Tablet PO SCH (21:00)
[2018-05-24] MEDS ORDERED: Carisoprodol 350 MG Tablet PO SCH (21:00)
[2018-05-24] MEDS ORDERED: clonazePAM 1 MG Tablet PO SCH (21:00)
[2018-05-24] MEDS ORDERED: Amphetamine/Dextroamphetamine 30 MG Tablet PO SCH (21:00)
== END 2018-05-24 17:30 | disposition home or self-care (01) | DRG 882 ==
LOC: NEPD 21:10 → NEDA 05-23 14:44 → H260 05-23 15:26
PROVIDERS: ADMIT Student in an Organized Health Care Education/Training Program; ATTEND Student in an Organized Health Care Education/Training Program